=== PATIENT | female | born 1975 ===

== ENCOUNTER 2021-09-28 06:00 | Day surgery (SDC) | payer OTHER | END 2021-09-28 12:20 | disposition home or self-care (01) | LOC: AMB-ENDOS 06:00 | PROVIDERS: ATTEND Surgery | DX: C18.7 Malignant neoplasm of sigmoid colon (principal); K56.50 Intestinal adhesions [bands], unspecified as to partial versus complete obstruction; Z93.3 Colostomy status ==

== ENCOUNTER 2021-10-15 13:57 | Inpatient (IN) | payer OTHER ==
[~2021-10-15] VITALS: Ht 154.9 cm; Wt 45.4 kg
[2021-11-02] MEDS ORDERED: INTESTINEX680 M1 PO (13:37)
[2021-11-02] MEDS ORDERED: HIBICLENS118 ML TOP (13:38)
== END 2021-11-02 14:52 | disposition home or self-care (01) | DRG 329 ==
LOC: SURG 10-19 06:00 → O/R 10-19 06:00 → SURG 10-19 08:17 → SURH 10-19 08:45 → SURG 11-02 14:52
PROVIDERS: Obstetrics & Gynecology Gynecology; ADMIT Surgery; ATTEND Surgery
PROC: 07BB4ZZ Excision of Mesenteric Lymphatic, Percutaneous Endoscopic Approach (ICD-10-PCS; 2021-10-19)
PROC: 0UT24ZZ Resection of Bilateral Ovaries, Percutaneous Endoscopic Approach (ICD-10-PCS; 2021-10-19)
PROC: 0DBL4ZZ Excision of Transverse Colon, Percutaneous Endoscopic Approach (ICD-10-PCS; 2021-10-19)
PROC: 0DJD8ZZ Inspection of Lower Intestinal Tract, Via Natural or Artificial Opening Endoscopic (ICD-10-PCS; 2021-10-19)
PROC: 0DTN4ZZ Resection of Sigmoid Colon, Percutaneous Endoscopic Approach (ICD-10-PCS; principal; 2021-10-19 08:45)
PROC: 0DBP4ZZ Excision of Rectum, Percutaneous Endoscopic Approach (ICD-10-PCS; 2021-10-19 08:45)
PROC: 30233N1 Transfusion of Nonautologous Red Blood Cells into Peripheral Vein, Percutaneous Approach (ICD-10-PCS; 2021-10-21)
PROC: 02HV33Z Insertion of Infusion Device into Superior Vena Cava, Percutaneous Approach (ICD-10-PCS; 2021-10-22)
PROC: BW21ZZZ Computerized Tomography (CT Scan) of Abdomen and Pelvis (ICD-10-PCS; 2021-10-26)
PROC: 0W9J30Z Drainage of Pelvic Cavity with Drainage Device, Percutaneous Approach (ICD-10-PCS; 2021-10-28)
DX: C19 Malignant neoplasm of rectosigmoid junction (principal); K65.1 Peritoneal abscess; D62 Acute posthemorrhagic anemia; T81.49XA Infection following a procedure, other surgical site, initial encounter; K91.89 Other postprocedural complications and disorders of digestive system; K56.7 Ileus, unspecified; L76.32 Postprocedural hematoma of skin and subcutaneous tissue following other procedure; N83.291 Other ovarian cyst, right side; R14.0 Abdominal distension (gaseous); Z20.822 Contact with and (suspected) exposure to COVID-19; B96.5 Pseudomonas (aeruginosa) (mallei) (pseudomallei) as the cause of diseases classified elsewhere; B95.2 Enterococcus as the cause of diseases classified elsewhere

== ENCOUNTER 2021-11-13 07:08 | Outpatient (CLI) | payer OTHER ==
[~2021-11-13 07:08] MED LIST: HIBICLENS118 ML TOP; INTESTINEX680 M1 PO
== END 2021-11-13 07:09 | disposition home or self-care (01) ==
LOC: LAB 07:08
PROVIDERS: ATTEND Surgery
DX: C18.7 Malignant neoplasm of sigmoid colon (principal)

== ENCOUNTER 2021-12-07 17:48 | Outpatient (CLI) | payer OTHER | END 2021-12-07 18:00 | disposition home or self-care (01) | LOC: LAB 17:48 | PROVIDERS: ATTEND Surgery | DX: A09 Infectious gastroenteritis and colitis, unspecified (principal); A05.9 Bacterial foodborne intoxication, unspecified ==

== ENCOUNTER → 2021-12-17 06:41 | Outpatient (CLI) | payer OTHER | END | disposition home or self-care (01) | LOC: LAB 06:41 | PROVIDERS: ATTEND Surgery | DX: C18.9 Malignant neoplasm of colon, unspecified (principal); A09 Infectious gastroenteritis and colitis, unspecified ==

== ENCOUNTER 2022-01-04 07:43 | Outpatient (CLI) | payer OTHER | END 2022-01-04 07:56 | disposition home or self-care (01) | LOC: NUCLEAR 07:43 | PROVIDERS: ATTEND Internal Medicine | DX: C17.0 Malignant neoplasm of duodenum (principal) | CPT/HCPCS: 78815; A9552 ==